=== PATIENT | female | born 1985 | race Caucasian/White ===

== ENCOUNTER 2023-03-07 12:55 | Outpatient (AMB) | payer OTHER, SELFPAY ==
--- NOTE | 2023-03-07 13:02 | MHC.PC.OV ---
Vital Signs 03/07/23 13:04 Height 5 ft 9 in Weight 130 lb BMI 19.2 BP 124/70 Blood Pressure Location Lt brachial Position Sitting Pulse 79 Pulse Source Pulse Oximeter Pulse Oximetry (%) 100 Oxygen Delivery Method Room Air Intake Visit Reasons: Re-Establish Care / PE Intake Note: Pt is here today for her PE Is last menstrual period known: Yes Last menstrual period: 02/21/23 Allergies No Known Allergies Allergy (Verified 03/07/23 13:14) Medication List - Last Reconciled 04/01/23 by Ariane Mccann MD escitalopram oxalate 10 mg PO DAILY Tobacco use date assessed: 03/07/23 Dental Screening Dental Screen Date: 03/07/23 Did you have a dental visit in the last 12 months?: Yes Did you have a dental problem in the last 6 months where you did not have access to dental care?: No Was dental information given to patient?: Patient has dentist HPI Re-Establish Care / PE HPI Details 37 year old Lady here today to establish care and for her physical exam . She currently sees [facility], Dr. Lau, who did a Pap in 2018December 26 which showed presence of atypical squamous cells of undetermined significance, negative HPV. Has mixed anxiety and depression, previously on Wellbutrin but had to discontinue it as it was making her very angry , and is currently doing well on escitalopram. [facility] Medical History (Updated 03/07/23 @ 13:33 by Ariane Mccann MD) Mixed anxiety and depressive disorder Surgical History (Updated 04/01/23 @ 11:15 by Ariane Mccann MD) No pertinent past surgical history Family History (Updated 04/01/23 @ 11:17 by Ariane Mccann MD) Father Esophageal cancer COPD (chronic obstructive pulmonary disease) Diabetes mellitus CVA (cerebral vascular accident) Social History Housing: House e-Cigarette/Vaping Use: Never Used service: No Current occupational status: unemployed Cognitive needs: No Hearing needs: No Vision needs: Yes Female Reproductive History Menstrual Date of last menstrual period: 02/21/23 Questionnaire PHQ-9 Over the last 2 weeks, how often have you been bothered by any of the following problems? 1. Little interest or pleasure in doing things: several days 2. Feeling down, depressed, or hopeless: several days 3. Trouble falling or staying asleep, or sleeping too much: several days 4. Feeling tired or having little energy: nearly every day 5. Poor appetite or overeating: more than half the days 6. Feeling bad about yourself - or that you are a failure or have let yourself or your family down: not at all 7. Trouble concentrating on things, such as reading the newspaper or watching television: not at all 8. Moving or speaking so slowly that other people could have noticed. Or the opposite - being so fidgety or restless that you have been moving around a lot more than usual: not at all 9. Thoughts that you would be better off or of hurting yourself in some way: not at all Total score: 8 Depression Screening Interpretation: Positive Depression Screening Follow-up: Existing condition, In treatment and Community Mental Health Worker F/U Depression Screening Done: Yes 27963 - PHQ-9 Billing: Yes Source: Developed by Drs. Amol Sandhu, Jennifer Uriarte, Alessandro Avendaño and colleagues, with an educational giuseppe from [employer]. Thrive Questionnaire Date Thrive assessed: 03/07/23 What is your living situation today?: I have a steady place to live Within the past 12 months, did the food you bought not last and you didn't have the money to get more?: Never true Within the past 12 months, did you worry whether your food would run out before you got money to buy more?: Never true Do you have trouble paying for medicines?: No Do you have trouble getting transportation to medical appointments?: No Do you have trouble paying your heating and electricity bill?: No Do you have trouble taking care of your child, family member or friend?: No Do you have trouble with day-to-day activities such as bathing, preparing meals, shopping, managing finances, etc.?: No Are you currently unemployed and looking for a job?: No Are you interested in more education?: No AUDIT C Alcohol Use Questionnaire (AUDIT-C) 1. How often do you have a drink containing alcohol?: Never Total Score: 0 CL-7 AMB Questionnaire CL-7 Date CL - 7 assessed: 03/07/23 Feeling nervous, anxious, or on edge: 3 = Nearly every day Not being able to stop or control worryin = More than half the days Worrying too much about different things: 2 = More than half the days Trouble relaxin = Several days Being so restless that it is hard to sit still: 0 = Not at all Becoming easily annoyed or irritable: 3 = Nearly every day Feeling afraid as if something awful might happen: 0 = Not at all Total CL-7 score (0-4 normal; 5-9 mild; 10-14 moderate; 15-21 severe): 11 Source: Developed by Drs. Amol Sandhu, Jennifer Uriarte, Alessandro Avendaño and colleagues, with an educational giuseppe from [employer]. CL-7 Assessment Billing CL-7 Assessment Tool: CL-7 Assessment 77998 Review of Systems Const Denies body aches, Denies fatigue, Denies fever(s), Denies headache(s) and Denies weakness Eyes Denies change in vision, Denies eye discharge and Denies itchy eyes ENT Denies dizziness, Denies headache(s), Denies nasal congestion, Denies nasal discharge and Denies sore throat Card Denies chest pain, Denies lightheadedness, Denies palpitations and Denies dyspnea Resp Denies chest congestion, Denies cough, Denies dyspnea and Denies wheezing GI Denies abdominal pain, Denies change in bowel habits and Denies heartburn Denies hematuria, Denies urinary frequency, Denies dysuria and Denies urinary urgency Musc Reports no additional complaints Skin/Breast Denies breast pain, Denies breast mass, Denies lesions and Denies rash Neuro Denies dizziness, Denies headache(s) and Denies weakness Psych Reports no additional complaints and Reports as per HPI Endo Denies fatigue, Denies polydipsia, Denies polyuria and Denies palpitations Benson/Lymph Denies easy bruising Aller/Immun Denies itchy eyes, Denies seasonal rhinorrhea and Denies wheezing Physical exam (Primary Care) Vital Signs: Last Vital Signs Pulse 79 03/07/23 13:04 BP 124/70 03/07/23 13:04 Pulse Ox 100 03/07/23 13:04 Oxygen Delivery Method Room Air 03/07/23 13:04 BMI result Body Mass Index 19.2 Tobacco/Smoking Status: Tobacco use Status Tobacco use date assessed 03/07/23 03/07/23 13:23 e-Cigarette/Vaping Use Never Used 03/07/23 13:23 PHQ-9: PHQ-9 Score PHQ-9: Total score 8 03/07/23 13:58 Depression Screening Interpretation: Positive Depression Screening Follow-up: Existing condition, In treatment and Community Mental Health Worker F/U Thrive Assessment: Date of Thrive Assessment Date Thrive assessed 03/07/23 03/07/23 13:27 Const General: no acute distress and alert Nutritional Appearance: average body habitus Orientation/consciousness: patient oriented x3 HENMT Head: Yes normocephalic and Yes atraumatic Ears: external ears normal, TM's normal bilaterally and EAC's normal General nose exam: Normal external nose present and No nasal discharge present Face and sinus: Yes face symmetric Mouth: Normal oral and palatal mucosa present, lip normal, tongue normal, oropharynx normal and moist mucous membranes Eyes General: appearance normal, both eyes and all related structures Eyelids: Yes eyelids normal Conjunctivae: conjunctivae normal Sclerae: sclerae normal Pupils: Equal, round and reactive pupils present EOM: EOMs intact bilaterally Neck Neck: Yes full ROM, Yes no lymphadenopathy and Yes supple Thyroid: Thyroid normal Chest Breast/axilla palpation: normal palpation of the breasts Resp Effort & Inspection: normal respiratory effort and able to speak in complete sentences Auscultation: clear to auscultation bilaterally Cardio Rate: regular rate Rhythm: regular rhythm Heart sounds: S1 normal heart sound present and S2 normal heart sound present GI Palpation (GI): Soft to palpation, nontender, no guarding and no masses Auscultation: normal bowel sounds General: Yes no CVA tenderness Back/Spine/Pelvis Back: no CVA tenderness and No back tenderness Skin General skin exam: no rashes or lesions noted Neuro General: patient oriented x3, gait normal, moves all extremities, Normal light touch and pain sensation, no focal motor deficits and CN's II-XI intact bilaterally Cranial nerves: Yes Equal, round and reactive pupils present Cognition (Neuro): normal cognition Gait exam (Neuro): Normal gait present Motor exam (neuro): 5/5 motor strength present throughout Extrem General: Yes normal to inspection, Yes full ROM, Yes no joint enlargement, Yes no pedal edema and Yes normal gait Psych Appearance: grossly normal and well kempt Mental Status: mental status grossly normal Speech and movement: Normal speech and movement present Affect: normal affect Attitude: cooperative Thought process: Normal thought process present Thought content: Normal thought content present Office Procedures Flu Questionnaire Does the patient have a severe egg allergy?: No Does the patient have severe life threatening allergies?: No Does the patient have a fever or illness today?: No Has the patient ever had Guillain-[place] Syndrome?: No Has the patient ever had any past reaction to a flu shot?: No Immunizations flu vacc [id number] 6mos up(PF) 60 mcg(15 mcgx4)/0.5 mL IM syringe Performing Provider: Ariane Mccann MD Performing Location: [facility] Administered by: Mana Cherry CMA on 03/07/23 13:29 Dose Route Admin Location Dispensed Lot Number Expiration Date NDC [employer] 0.5 mL IM Left Deltoid 0.5 mL [id number] 09/10/23 63610-381-29 SmartPill VIS Given Date VIS Provided VIS Publication Date 03/07/23 Single Vaccine 20 Eligibility Eligibility Date Funding Source Not [facility] Eligible 03/07/23 Private Assessment and Plan Assessment & Plan (1) Annual visit for general adult medical examination with abnormal findings: Code(s): Z00.01 - Encounter for general adult medical examination with abnormal findings Plan: Will check appropriate labs. Continue regular dental visit every 6 months and regular eye exams, at least every 2 years. Take adequate calcium in diet and vitamin-D 3 at 2000 IU per cap once a day, in addition to weight-bearing exercises to help maintain good muscle tone and weight control. Instructed to do self-breast exam, and recommended to get yearly mammogram, starting at age 40. I flu vaccine given today, patient has had COVID vaccines the past but does not want to get the booster dose, up-to-date with her Tdap. Currently sees [facility] for her routine Pap and pelvic exam, last done in 2021 with normal findings, per patient (2) Mixed anxiety and depressive disorder: Code(s): F41.8 - Other specified anxiety disorders Plan: Currently on escitalopram 10 mg daily, started a by her OBGYN 02/10/2023, patient does not want to adjust dose as of yet, sees her therapist regularly Orders: Orders Influenza [id number] Immunization 03/07/23 Z23 - Encounter for immunization Complete Blood Count Auto Diff 03/08/23 F41.8 - Other specified anxiety disorders, Z00.01 - Encounter for general adult medical examination with abnormal findings Alanine Aminotransferase 03/08/23 F41.8 - Other specified anxiety disorders, Z00.01 - Encounter for general adult medical examination with abnormal findings Aspartate Amino Transferase 03/08/23 F41.8 - Other specified anxiety disorders, Z00.01 - Encounter for general adult medical examination with abnormal findings TSH reflex Free T4 03/08/23 F41.8 - Other specified anxiety disorders, Z00.01 - Encounter for general adult medical examination with abnormal findings Vitamin D 25-OH Total 03/08/23 F41.8 - Other specified anxiety disorders, Z00.01 - Encounter for general adult medical examination with abnormal findings Vitamin B12 and Folate 03/08/23 F41.8 - Other specified anxiety disorders, Z00.01 - Encounter for general adult medical examination with abnormal findings Basic Metabolic Panel Fasting 03/08/23 F41.8 - Other specified anxiety disorders, Z00.01 - Encounter for general adult medical examination with abnormal findings Lipid Panel 03/08/23 F41.8 - Other specified anxiety disorders, Z00.01 - Encounter for general adult medical examination with abnormal findings Coding Level of Care Code New Pt Prev Care 18-39yr(31176 Diagnoses Annual visit for general adult medical examination with abnormal findings Z00.01 Mixed anxiety and depressive disorder F41.8 Additional Codes CL-7 Assessment Billing - CL-7 Assessment Tool: CL-7 Assessment 90559 ([id number])
[2023-03-07 13:04] VITALS: BP 124/70; PULSE 79; O2SAT 100; BMI 19.2
== END 2023-03-07 15:55 | disposition home or self-care (01) ==
PROVIDERS: PCP Internal Medicine; Visit Provider Internal Medicine
DX: Z23 Encounter for immunization (principal)
CPT/HCPCS: 90471; 90686; 96127; 99385

== ENCOUNTER 2023-03-08 07:28 | Outpatient (REF) | payer OTHER, SELFPAY ==
[2023-03-08 11:21] LABS: MANUAL DIFF FLAG NO
[2023-03-08 11:47] LABS: Basophils Percent Auto 0.4 % (0-2); Eosinophils Absolute Auto 0.1 X10*3/uL (0.0-0.4); Hematocrit 41.8 % (37.0-47.0); Hemoglobin 13.9 g/dl (12.0-16.0); Imm Gran Abs Auto 0.02 X10*3/uL (0.00-0.03); Imm Gran Pct Auto 0.4 % (0.0-0.4); Lymphocytes Absolute Auto 1.2 X10*3/uL (1.2-4.9); Lymphocytes Percent Auto 23.8 % (20-40); Mean Corpuscular HGB Conc 33.3 g/dl (31.0-35.0); Mean Corpuscular Hemoglobin 29.4 pg (27.0-33.0); Mean Corpuscular Volume 88.6 fL (80.0-98.0); Mean Platelet Volume 9.4 fL (9.4-12.3); Monocytes Absolute Auto 0.4 X10*3/uL (0.1-1.2); Monocytes Percent Auto 7.9 % (2-11); Neutrophils Absolute Auto 3.4 x10*3/uL (2.0-8.3); Neutrophils Percent Auto 66.5 % (45-73); Platelet Count 254 X10*3/uL (160-400); Red Blood Count 4.72 X10*6/uL (4.20-5.50); Red Cell Distribution Width 12.5 % (11.0-16.0); White Blood Count 5.1 X10*3/uL (4.8-10.8)
[2023-03-08 12:12] LABS: Alanine Aminotransferase 11 U/L (0-31); Anion Gap 13 (12-20); Aspartate Amino Transferase 16 U/L (5-31); Blood Urea Nitrogen 8 mg/dL (9-16); Calcium 9.2 mg/dL (8.4-10.2); Carbon Dioxide 28 mmol/L (22-29); Chloride 102 mmol/L (96-108); Cholesterol 161 mg/dL (<200); Estimated Glomerular Filt Rate > 60; Glucose Fasting 87 mg/dL (60-99); HDL Cholesterol 63 mg/dL (>40); LDL Cholesterol Calculated 77 mg/dL (<100); Potassium 3.9 mmol/L (3.3-5.1); Sodium 139 mmol/L (135-145); Triglycerides 107 mg/dL (<150)
[2023-03-08 12:30] LABS: TSH reflex Free T4 1.02 uIU/mL (0.32-4.0); Vitamin D 25-OH Total 35.4 ng/mL (>30)
[2023-03-08 13:04] LABS: Folate 12.4 ng/mL (> or = 4.0)
[2023-03-08 14:31] LABS: Vitamin B12 738 pg/mL (200-900)
== END 2023-03-08 07:29 | disposition home or self-care (01) ==
LOC: HO.HMGCLDS 07:28
PROVIDERS: PCP Internal Medicine; Visit Provider Internal Medicine
DX: Z00.01 Encounter for general adult medical examination with abnormal findings (principal); F41.8 Other specified anxiety disorders; Z20.2 Contact with and (suspected) exposure to infections with a predominantly sexual mode of transmission
CPT/HCPCS: 36415; 80048; 80061; 82306; 82607; 82746; 84443; 84450; 84460; 85025

== ENCOUNTER 2023-08-18 09:34 | Outpatient (AMB) | payer OTHER, SELFPAY ==
--- NOTE | 2023-08-18 09:32 | MHC.PC.OV ---
Intake Visit Reasons: andriod [phone] discuss increase med Intake Note: Pt is having a telehealth visit to discuss increase of her escitalopram Allergies No Known Allergies Allergy (Verified 08/18/23 09:37) Medication List - Last Reconciled 08/18/23 by Ariane Mccann MD escitalopram oxalate 10 mg PO DAILY Tobacco use date assessed: 08/18/23 Dental Screening Dental Screen Date: 08/18/23 Did you have a dental visit in the last 12 months?: Yes Did you have a dental problem in the last 6 months where you did not have access to dental care?: No Was dental information given to patient?: Patient has dentist HPI andriod [phone] discuss increase med HPI Details 38-year-old lady with mixed anxiety and depression, here today for follow-up by telehealth. Patient was started on escitalopram 10 mg once a day, which she states was initially helping. However there are still days where in she has to pull herself out of bed and force herself to do her usual regular day-to-day activities. Would like to see if she can go higher on her escitalopram dose. Has been tolerating medication well . [facility] Medical History Mixed anxiety and depressive disorder Surgical History No pertinent past surgical history Family History Father Esophageal cancer COPD (chronic obstructive pulmonary disease) Diabetes mellitus CVA (cerebral vascular accident) Social History Housing: House Patient Tobacco Use Status: Never used Tobacco e-Cigarette/Vaping Use: Never Used service: No Current occupational status: unemployed Cognitive needs: No Hearing needs: No Vision needs: Yes Questionnaire PHQ-9 Over the last 2 weeks, how often have you been bothered by any of the following problems? 1. Little interest or pleasure in doing things: not at all 2. Feeling down, depressed, or hopeless: several days 3. Trouble falling or staying asleep, or sleeping too much: not at all 4. Feeling tired or having little energy: several days 5. Poor appetite or overeating: more than half the days 6. Feeling bad about yourself - or that you are a failure or have let yourself or your family down: not at all 7. Trouble concentrating on things, such as reading the newspaper or watching television: not at all 8. Moving or speaking so slowly that other people could have noticed. Or the opposite - being so fidgety or restless that you have been moving around a lot more than usual: not at all 9. Thoughts that you would be better off or of hurting yourself in some way: not at all Total score: 4 Depression Screening Interpretation: Positive Depression Screening Follow-up: Existing condition, In treatment and Change in Medication (Escitalopram dose increased to 20 mg daily) Depression Screening Done: Yes 06270 - PHQ-9 Billing: Yes Source: Developed by Drs. Amol Sandhu, Jennifer Uriarte, Alessandro Avendaño and colleagues, with an educational giuseppe from [employer]. Thrive Questionnaire Date Thrive assessed: 08/18/23 I am a: Patient What is your living situation today?: I have a steady place to live Within the past 12 months, did the food you bought not last and you didn't have the money to get more?: Never true Within the past 12 months, did you worry whether your food would run out before you got money to buy more?: Never true Do you have trouble paying for medicines?: No Do you have trouble getting transportation to medical appointments?: No Do you have trouble paying your heating and electricity bill?: No Do you have trouble taking care of your child, family member or friend?: No Do you have trouble with day-to-day activities such as bathing, preparing meals, shopping, managing finances, etc.?: No Are you currently unemployed and looking for a job?: No Are you interested in more education?: No THRIVE Score: 0 AUDIT C Alcohol Use Questionnaire (AUDIT-C) 1. How often do you have a drink containing alcohol?: Never Total Score: 0 CL-7 AMB Questionnaire CL-7 Date CL - 7 assessed: 08/18/23 Feeling nervous, anxious, or on edge: 1 = Several days Not being able to stop or control worryin = Several days Worrying too much about different things: 1 = Several days Trouble relaxin = Not at all Being so restless that it is hard to sit still: 1 = Several days Becoming easily annoyed or irritable: 0 = Not at all Feeling afraid as if something awful might happen: 0 = Not at all Total CL-7 score (0-4 normal; 5-9 mild; 10-14 moderate; 15-21 severe): 4 Source: Developed by Drs. Amol Sandhu, Jennifer Uriarte, Alessandro Avendaño and colleagues, with an educational giuseppe from [employer]. CL-7 Assessment Billing CL-7 Assessment Tool: CL-7 Assessment 05945 Review of Systems Const Denies body aches, Denies fatigue, Denies fever(s), Denies headache(s) and Denies weakness Eyes Denies change in vision ENT Denies dizziness, Denies headache(s) and Denies nasal congestion Card Denies chest pain, Denies lightheadedness, Denies palpitations and Denies dyspnea Resp Denies chest congestion, Denies cough, Denies dyspnea and Denies wheezing GI Denies abdominal pain, Denies change in bowel habits and Denies heartburn Denies hematuria, Denies urinary frequency, Denies dysuria and Denies urinary urgency Musc Reports no additional complaints Neuro Denies dizziness, Denies headache(s) and Denies weakness Psych Reports no additional complaints and Reports as per HPI Endo Denies fatigue, Denies polydipsia, Denies polyuria and Denies palpitations Benson/Lymph Denies easy bruising Aller/Immun Denies seasonal rhinorrhea and Denies wheezing Physical exam (Primary Care) Tobacco/Smoking Status: Tobacco use Status Tobacco use date assessed 08/18/23 08/18/23 09:33 Patient Tobacco Use Status Never used Tobacco 08/18/23 09:33 e-Cigarette/Vaping Use Never Used 08/18/23 09:33 PHQ-9: PHQ-9 Score PHQ-9: Total score 4 08/18/23 09:41 Depression Screening Interpretation: Positive Depression Screening Follow-up: Existing condition, In treatment and Change in Medication (Escitalopram dose increased to 20 mg daily) Thrive Assessment: Date of Thrive Assessment Date Thrive assessed 08/18/23 08/18/23 09:34 Telehealth Telehealth Telehealth Platform: [employer] Location of provider rendering services: practice address Location of patient: address on file Patient Identification confirmed using: Name, : Yes Telehealth method: video Patient verbally consented to treatment: Yes Patient verbally consented to billing insurance company: Yes Patient informed of any privacy concerns related to visit: Yes Minutes spent on Phone/Video with Pt.: 15 Assessment and Plan Assessment & Plan (1) Mixed anxiety and depressive disorder: Code(s): F41.8 - Other specified anxiety disorders Plan: Increased dose of escitalopram to 20 mg per tablet taken once a day in the morning. Sees a therapist every 2 weeks. Will have her see me back for follow-up next month via telehealth . Medications: New escitalopram oxalate 20 mg PO DAILY 30 tabs 2RF F41.8 - Other specified anxiety disorders Coding Level of Care Code Tele Est Pt Level 3 (56618) Diagnoses Mixed anxiety and depressive disorder F41.8 Additional Codes CL-7 Assessment Billing - CL-7 Assessment Tool: CL-7 Assessment 32140 ([id number])
== END 2023-08-18 12:15 | disposition home or self-care (01) ==
LOC: HO.HMGC 09:34
PROVIDERS: PCP Internal Medicine; Visit Provider Internal Medicine
DX: F41.8 Other specified anxiety disorders (principal)
CPT/HCPCS: 99213

== ENCOUNTER → 2023-10-06 07:27 | Outpatient (AMB) | payer OTHER, SELFPAY ==
--- NOTE | 2023-10-06 08:20 | MHC.PC.OV ---
Intake Visit Reasons: 1 month follow up anxiety Allergies No Known Allergies Allergy (Verified 10/06/23 09:12) Medication List - Last Reconciled 10/06/23 by Ariane Mccann MD escitalopram oxalate 20 mg PO DAILY Tobacco use date assessed: 08/18/23 Dental Screening Dental Screen Date: 08/18/23 HPI 1 month follow up anxiety HPI Details 38-year-old lady here today for follow-up on her anxiety and depression. Currently taking escitalopram 20 mg once a day in a.m. and has been feeling much better on this higher dose. Has been able to keep her focus at work, no panic attacks, mood swings have improved. She sleeps well at night. Would like to continue on same dose of medication. [facility] Medical History Mixed anxiety and depressive disorder Surgical History No pertinent past surgical history Family History Father Esophageal cancer COPD (chronic obstructive pulmonary disease) Diabetes mellitus CVA (cerebral vascular accident) Social History Housing: House Patient Tobacco Use Status: Never used Tobacco e-Cigarette/Vaping Use: Never Used service: No Current occupational status: unemployed Cognitive needs: No Hearing needs: No Vision needs: Yes Questionnaire PHQ-9 Over the last 2 weeks, how often have you been bothered by any of the following problems? 1. Little interest or pleasure in doing things: not at all 2. Feeling down, depressed, or hopeless: not at all 3. Trouble falling or staying asleep, or sleeping too much: not at all 4. Feeling tired or having little energy: not at all 5. Poor appetite or overeating: not at all 6. Feeling bad about yourself - or that you are a failure or have let yourself or your family down: not at all 7. Trouble concentrating on things, such as reading the newspaper or watching television: not at all 8. Moving or speaking so slowly that other people could have noticed. Or the opposite - being so fidgety or restless that you have been moving around a lot more than usual: not at all 9. Thoughts that you would be better off or of hurting yourself in some way: not at all Total score: 0 Depression Screening Interpretation: Positive (Better on escitalopram 20 mg daily) Depression Screening Follow-up: Existing condition and In treatment Depression Screening Done: Yes 87742 - PHQ-9 Billing: Yes Source: Developed by Drs. Amol Sandhu, Alessandro Parker and colleagues, with an educational giuseppe from [employer]. Thrive Questionnaire Date Thrive assessed: 08/18/23 CL-7 AMB Questionnaire CL-7 Date CL - 7 assessed: 10/06/23 Feeling nervous, anxious, or on edge: 0 = Not at all Not being able to stop or control worryin = Not at all Worrying too much about different things: 0 = Not at all Trouble relaxin = Not at all Being so restless that it is hard to sit still: 0 = Not at all Becoming easily annoyed or irritable: 0 = Not at all Feeling afraid as if something awful might happen: 0 = Not at all Total CL-7 score (0-4 normal; 5-9 mild; 10-14 moderate; 15-21 severe): 0 Source: Developed by Drs. Amol Sandhu, Jennifer Uriarte, Alessandro Avendaño and colleagues, with an educational giuseppe from [employer]. CL-7 Assessment Billing CL-7 Assessment Tool: CL-7 Assessment 01258 Review of Systems Const Denies body aches, Denies fatigue, Denies fever(s), Denies headache(s) and Denies weakness Eyes Denies change in vision ENT Denies dizziness, Denies headache(s) and Denies nasal congestion Card Denies chest pain, Denies lightheadedness, Denies palpitations and Denies dyspnea Resp Denies chest congestion, Denies cough, Denies dyspnea and Denies wheezing GI Denies abdominal pain, Denies change in bowel habits and Denies heartburn Denies hematuria, Denies urinary frequency, Denies dysuria and Denies urinary urgency Musc Reports no additional complaints Neuro Denies dizziness, Denies headache(s) and Denies weakness Psych Reports no additional complaints Endo Denies fatigue, Denies polydipsia, Denies polyuria and Denies palpitations Aller/Immun Denies seasonal rhinorrhea and Denies wheezing Physical exam (Primary Care) Tobacco/Smoking Status: Tobacco use Status Tobacco use date assessed 08/18/23 10/06/23 08:20 Patient Tobacco Use Status Never used Tobacco 10/06/23 08:20 e-Cigarette/Vaping Use Never Used 10/06/23 08:20 Depression Screening Interpretation: Positive (Better on escitalopram 20 mg daily) Depression Screening Follow-up: Existing condition and In treatment Thrive Assessment: Date of Thrive Assessment Date Thrive assessed 08/18/23 10/06/23 08:20 Telehealth Telehealth Telehealth Platform: [employer] Location of provider rendering services: practice address Location of patient: address on file Patient Identification confirmed using: Name, : Yes Telehealth method: video Patient verbally consented to treatment: Yes Patient verbally consented to billing insurance company: Yes Patient informed of any privacy concerns related to visit: Yes Minutes spent on Phone/Video with Pt.: 15 Assessment and Plan Assessment & Plan (1) Mixed anxiety and depressive disorder: Code(s): F41.8 - Other specified anxiety disorders Plan: Anxiety and depression improving on escitalopram 20 mg once a day, will continue on present treatment. Advised to continue with behavioral techniques to manage anxiety, will see her back for follow-up in March for her next physical or sooner as needed. Medications: Refilled escitalopram oxalate 20 mg PO DAILY 30 tabs 5RF F41.8 - Other specified anxiety disorders Coding Level of Care Code Tele Est Pt Level 3 (42433) Diagnoses Mixed anxiety and depressive disorder F41.8 Additional Codes CL-7 Assessment Billing - CL-7 Assessment Tool: CL-7 Assessment 92551 ([id number])
== END ==
LOC: HO.HMGC 07:27
PROVIDERS: PCP Internal Medicine; Visit Provider Internal Medicine
DX: F41.8 Other specified anxiety disorders (principal)
CPT/HCPCS: 99213

== ENCOUNTER 2024-03-08 08:05 | Outpatient (AMB) | payer OTHER, SELFPAY ==
--- NOTE | 2024-03-08 08:10 | MHC.PC.OV ---
Vital Signs 03/08/24 08:14 Height 5 ft 9 in Weight 139 lb BMI 20.5 BP 112/64 Blood Pressure Location Rt brachial Position Sitting Pulse 89 Pulse Source Pulse Oximeter Pulse Oximetry (%) 100 Oxygen Delivery Method Room Air Intake Visit Reasons: PE Intake Note: Pt is here today for her PE: Last papsmear 12/17/21 Is last menstrual period known: Yes Last menstrual period: 03/04/24 Allergies No Known Allergies Allergy (Verified 03/08/24 08:48) Medication List - Last Reconciled 03/08/24 by Ariane Mccann MD escitalopram oxalate 20 mg PO DAILY Tobacco use date assessed: 03/08/24 Dental Screening Dental Screen Date: 03/08/24 Did you have a dental visit in the last 12 months?: Yes Did you have a dental problem in the last 6 months where you did not have access to dental care?: No Was dental information given to patient?: Patient has dentist HPI PE HPI Details - The patient is a 38-year-old female presenting for a physical exam. - She has history of depression and anxiety disorder currently on esitalopram 10 mg once a day. Her anxiety attacks are primarily triggered by concerns for children's safety; symptoms have improved over time. - Discussed nine pounds of weight gain over one year, attributes lack of weight management to decreased physical activity. 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 [facility] Medical History Mixed anxiety and depressive disorder Surgical History No pertinent past surgical history Family History Father Esophageal cancer COPD (chronic obstructive pulmonary disease) Diabetes mellitus CVA (cerebral vascular accident) Social History Housing: House Patient Tobacco Use Status: Never used Tobacco e-Cigarette/Vaping Use: Never Used service: No Current occupational status: unemployed Cognitive needs: No Hearing needs: No Vision needs: Yes Female Reproductive History Menstrual Duration of menses: 3-5 days Date of last menstrual period: 03/04/24 control method: none Other: goes to [facility] for her routine pap and pelvic exam Questionnaire PHQ-9 Over the last 2 weeks, how often have you been bothered by any of the following problems? 1. Little interest or pleasure in doing things: not at all 2. Feeling down, depressed, or hopeless: not at all 3. Trouble falling or staying asleep, or sleeping too much: not at all 4. Feeling tired or having little energy: nearly every day 5. Poor appetite or overeating: nearly every day 6. Feeling bad about yourself - or that you are a failure or have let yourself or your family down: not at all 7. Trouble concentrating on things, such as reading the newspaper or watching television: not at all 8. Moving or speaking so slowly that other people could have noticed. Or the opposite - being so fidgety or restless that you have been moving around a lot more than usual: not at all 9. Thoughts that you would be better off or of hurting yourself in some way: not at all Total score: 6 Depression Screening Interpretation: Positive (controlled with escitalopram ) Depression Screening Follow-up: Existing condition, In treatment and Follow-up Visit Requested Depression Screening Done: Yes Source: Developed by Drs. Amol Sandhu, Jennifer Uriarte, Alessandro Avendaño and colleagues, with an educational giuseppe from [employer]. Thrive Questionnaire Date Thrive assessed: 08/18/23 I am a: Patient What is your living situation today?: I have a steady place to live Within the past 12 months, did the food you bought not last and you didn't have the money to get more?: Never true Within the past 12 months, did you worry whether your food would run out before you got money to buy more?: Never true Do you have trouble paying for medicines?: No Do you have trouble getting transportation to medical appointments?: No Do you have trouble paying your heating and electricity bill?: No Do you have trouble taking care of your child, family member or friend?: No Do you have trouble with day-to-day activities such as bathing, preparing meals, shopping, managing finances, etc.?: No Are you currently unemployed and looking for a job?: No Are you interested in more education?: No Please select the resources that you would like help with: None Currently or been in a relationship where the following occur: I choose not to answer THRIVE Score: 0 AUDIT C Alcohol Use Questionnaire (AUDIT-C) 1. How often do you have a drink containing alcohol?: Never Total Score: 0 CL-7 AMB Questionnaire CL-7 Date CL - 7 assessed: 10/06/23 Feeling nervous, anxious, or on edge: 1 = Several days Not being able to stop or control worryin = Not at all Worrying too much about different things: 0 = Not at all Trouble relaxin = Not at all Being so restless that it is hard to sit still: 0 = Not at all Becoming easily annoyed or irritable: 3 = Nearly every day Feeling afraid as if something awful might happen: 0 = Not at all Total CL-7 score (0-4 normal; 5-9 mild; 10-14 moderate; 15-21 severe): 4 Source: Developed by Drs. Amol Sandhu, Jennifer Uriarte, Alessandro Avendaño and colleagues, with an educational giuseppe from [employer]. CL-7 Assessment Billing CL-7 Assessment Tool: CL-7 Assessment 67166 Review of Systems Const Denies body aches, Denies fatigue, Denies fever(s), Denies headache(s) and Denies weakness Eyes Details: UTD with eye exam Denies change in vision ENT Denies dizziness, Denies headache(s) and Denies nasal congestion Card Denies chest pain, Denies lightheadedness, Denies palpitations and Denies dyspnea Resp Denies chest congestion, Denies cough, Denies dyspnea and Denies wheezing GI Denies abdominal pain, Denies change in bowel habits and Denies heartburn Denies hematuria, Denies urinary frequency, Denies dysuria and Denies urinary urgency Musc Reports no additional complaints Skin/Breast Denies breast pain, Denies breast mass and Denies rash Neuro Denies dizziness, Denies headache(s) and Denies weakness Psych Reports no additional complaints Endo Denies fatigue, Denies polydipsia, Denies polyuria and Denies palpitations Benson/Lymph Reports no additional complaints Aller/Immun Denies seasonal rhinorrhea and Denies wheezing Physical exam (Primary Care) Vital Signs: Last Vital Signs Pulse 89 03/08/24 08:14 BP 112/64 03/08/24 08:14 Pulse Ox 100 03/08/24 08:14 Oxygen Delivery Method Room Air 03/08/24 08:14 BMI result Body Mass Index 20.5 Tobacco/Smoking Status: Tobacco use Status Tobacco use date assessed 03/08/24 03/08/24 08:19 Patient Tobacco Use Status Never used Tobacco 03/08/24 08:11 e-Cigarette/Vaping Use Never Used 03/08/24 08:11 PHQ-9: PHQ-9 Score PHQ-9: Total score 6 03/08/24 08:11 Depression Screening Interpretation: Positive (controlled with escitalopram ) Depression Screening Follow-up: Existing condition, In treatment and Follow-up Visit Requested Thrive Assessment: Date of Thrive Assessment Date Thrive assessed 08/18/23 03/08/24 08:11 Currently or been in a relationship where the following occur: I choose not to answer Advance Care Planning discussion: Completed/Scanned Date of discussion: 03/08/24 Who was present: patient Forms completed: Health Care Proxy Time spent: 16-45 minutes Actual minutes spent: 2 Const General: no acute distress and alert Nutritional Appearance: average body habitus Orientation/consciousness: patient oriented x3 HENMT Ears: external ears normal, TM's normal bilaterally and EAC's normal General nose exam: Normal external nose present Face and sinus: Yes face symmetric Mouth: Normal oral and palatal mucosa present, lip normal, tongue normal, oropharynx normal and moist mucous membranes Eyes General: appearance normal, both eyes and all related structures Eyelids: Yes eyelids normal Conjunctivae: conjunctivae normal Sclerae: sclerae normal Pupils: Equal, round and reactive pupils present EOM: EOMs intact bilaterally Neck Neck: Yes full ROM, Yes no lymphadenopathy and Yes supple Thyroid: Thyroid normal Chest Breast/axilla palpation: normal palpation of the breasts Resp Effort & Inspection: normal respiratory effort and able to speak in complete sentences Auscultation: clear to auscultation bilaterally Cardio Rate: regular rate Rhythm: regular rhythm Heart sounds: S1 normal heart sound present and S2 normal heart sound present GI Palpation (GI): Soft to palpation, nontender, no guarding and no masses Auscultation: normal bowel sounds General: Yes no CVA tenderness Back/Spine/Pelvis Back: no CVA tenderness and No back tenderness Skin General skin exam: no rashes or lesions noted Neuro General: patient oriented x3, gait normal, moves all extremities, Normal light touch and pain sensation, no focal motor deficits and CN's II-XI intact bilaterally Cranial nerves: Yes Equal, round and reactive pupils present Cognition (Neuro): normal cognition Gait exam (Neuro): Normal gait present Motor exam (neuro): 5/5 motor strength present throughout Extrem General: Yes normal to inspection, Yes full ROM, Yes no joint enlargement, Yes no pedal edema and Yes normal gait Psych Appearance: grossly normal and well kempt Mental Status: mental status grossly normal Speech and movement: Normal speech and movement present Affect: normal affect Attitude: cooperative Thought process: Normal thought process present Thought content: Normal thought content present Coding Level of Care Code Est Pt Prev Care 18-39y(51653) Diagnoses Annual visit for general adult medical examination with abnormal findings Z00. Mixed anxiety and depressive disorder F41.8 Encounter for counseling regarding advance directives Z71.89 Additional Codes CL-7 Assessment Billing - CL-7 Assessment Tool: CL-7 Assessment 88417 ([id number]) Vital Signs *Quality* - Advance Care Planning discussion: Completed/Scanned ([id number]) Vital Signs *Quality* - Time spent: 16-45 minutes ([id number]) Assessment & Plan Assessment & Plan (1) Annual visit for general adult medical examination with abnormal findings: Code(s): Z00.01 - Encounter for general adult medical examination with abnormal findings (2) Mixed anxiety and depressive disorder: Code(s): F41.8 - Other specified anxiety disorders Category: Medical (3) Encounter for counseling regarding advance directives: Code(s): Z71.89 - Other specified counseling Plan: Initiated the conversation about Advanced Directives. Advanced Directives help patients prepare for current and future decisions about their medical treatment and place of care. Discussed with patient that it is a process where a patients current condition and prognosis are reviewed, their wishes for information regarding their illness are elicited, and likely medical dilemmas are presented and options discussed. Health care proxy form completed. The form can be amended as needed, reviewed yearly and make changes as needed Plan The management of the patient's health status includes following through on routine laboratory tests, focusing on cholesterol, fasting glucose, and vitamin D levels, to stratify risks and provide appropriate guidance. While the patient reports improvement in anxiety symptoms, continued psychosocial support and attention to lifestyle factors remain crucial. The resolution of depression without pharmacological intervention underscores the importance of monitoring for any future episodes. Family history of diabetes necessitates vigilant metabolic health screening. Weight management will be addressed through lifestyle modifications, primarily through reintroducing exercise and optimizing dietary habits. - Coordinate with [facility] to ensure routine Pap smears are conducted, request copy or results forwarded to us . . Future consideration will be given to COVID booster vaccinations. Patient was informed and verbally consented to the use of an ambient scribe for clinic note documentation during this visit. Orders: Orders Vitamin D 25-OH Total Today F41.8 - Other specified anxiety disorders, Z00.01 - Encounter for general adult medical examination with abnormal findings, Z13.1 - Encounter for screening for diabetes mellitus, Z13.220 - Encounter for screening for lipoid disorders, Z71.89 - Other specified counseling Alanine Aminotransferase Today F41.8 - Other specified anxiety disorders, Z00.01 - Encounter for general adult medical examination with abnormal findings, Z13.1 - Encounter for screening for diabetes mellitus, Z13.220 - Encounter for screening for lipoid disorders, Z71.89 - Other specified counseling Aspartate Amino Transferase Today F41.8 - Other specified anxiety disorders, Z00.01 - Encounter for general adult medical examination with abnormal findings, Z13.1 - Encounter for screening for diabetes mellitus, Z13.220 - Encounter for screening for lipoid disorders, Z71.89 - Other specified counseling Lipid Panel Today F41.8 - Other specified anxiety disorders, Z00.01 - Encounter for general adult medical examination with abnormal findings, Z13.1 - Encounter for screening for diabetes mellitus, Z13.220 - Encounter for screening for lipoid disorders, Z71.89 - Other specified counseling Glucose Fasting Today F41.8 - Other specified anxiety disorders, Z00.01 - Encounter for general adult medical examination with abnormal findings, Z13.1 - Encounter for screening for diabetes mellitus, Z13.220 - Encounter for screening for lipoid disorders, Z71.89 - Other specified counseling Medications: Refilled escitalopram oxalate 20 mg PO DAILY 30 tabs 5RF F41.8 - Other specified anxiety disorders
[2024-03-08 08:14] VITALS: BP 112/64; PULSE 89; O2SAT 100; BMI 20.5
== END 2024-03-08 08:42 | disposition home or self-care (01) ==
PROVIDERS: PCP Internal Medicine; Visit Provider Internal Medicine
DX: Z00.01 Encounter for general adult medical examination with abnormal findings (principal); F41.8 Other specified anxiety disorders; Z71.89 Other specified counseling

== ENCOUNTER 2024-03-08 08:05 | Outpatient (REF) | payer OTHER, SELFPAY ==
[2024-03-08 11:01] LABS: Alanine Aminotransferase 10 U/L (0-31); Aspartate Amino Transferase 19 U/L (5-31); Cholesterol 163 mg/dL (<200); Glucose Fasting 92 mg/dL (60-99); HDL Cholesterol 61 mg/dL (>40); LDL Cholesterol Calculated 82 mg/dL (<100); Triglycerides 101 mg/dL (<150)
[2024-03-08 11:02] LABS: Vitamin D 25-OH Total 25.5 ng/mL (>30)
== END 2024-03-08 08:06 | disposition home or self-care (01) ==
LOC: HO.HMGCLDS 08:05
PROVIDERS: PCP Internal Medicine; Visit Provider Internal Medicine
DX: Z00.01 Encounter for general adult medical examination with abnormal findings (principal); Z13.220 Encounter for screening for lipoid disorders; Z13.1 Encounter for screening for diabetes mellitus; F41.8 Other specified anxiety disorders; Z71.89 Other specified counseling; Z79.899 Other long term (current) drug therapy
CPT/HCPCS: 36415; 80061; 82306; 82947; 84450; 84460; 96127

== ENCOUNTER 2024-07-04 11:40 | Outpatient (AMB) | payer OTHER, SELFPAY ==
--- NOTE | 2024-07-04 11:51 | A.OFFPC_ITS ---
Vital Signs 07/04/24 11:52 Height 5 ft 9 in Weight 138 lb BMI 20.4 BP 112/80 Blood Pressure Location Rt brachial Position Sitting Respiration 16 Pulse 82 Pulse Source Pulse Oximeter Temp 98.2 F Temp Source Oral Pulse Oximetry (%) 100 Oxygen Delivery Method Room Air Intake Visit Reasons: fatique Intake Note: Pt is here today c/o being fatigue Allergies No Known Allergies Allergy (Verified 07/04/24 12:08) Medication List - Last Reconciled 07/04/24 by Ariane Mccann MD cholecalciferol (vitamin D3) 50 mcg PO DAILY escitalopram oxalate 20 mg PO DAILY Tobacco use date assessed: 07/04/24 Dental Screening Dental Screen Date: 07/04/24 Did you have a dental visit in the last 12 months?: Yes Did you have a dental problem in the last 6 months where you did not have access to dental care?: No Was dental information given to patient?: Patient has dentist LATRIC[facility] bill HPI Details 39-year-old lady here today complaining of feeling tired all the time. Patient is currently a [id number] mom, with history of anxiety disorder, has to children both under the age of 2. States that she has been able to sleep well at night. She has help with taking care of the kids, appetite okay but feels tired all the time. Takes escitalopram 20 mg daily for anxiety disorder which she states has been helping and is currently taking vitamin-D 3 supplements 2000 units daily. [facility] Medical History (Updated 07/08/24 @ 04:15 by Ariane Mccann MD) Fatigue Mixed anxiety and depressive disorder Surgical History No pertinent past surgical history Family History Father Esophageal cancer COPD (chronic obstructive pulmonary disease) Diabetes mellitus CVA (cerebral vascular accident) Social History Housing: House Patient Tobacco Use Status: Never used Tobacco e-Cigarette/Vaping Use: Never Used service: No Current occupational status: unemployed Cognitive needs: No Hearing needs: No Vision needs: Yes Questionnaire PHQ-9 Over the last 2 weeks, how often have you been bothered by any of the following problems? 1. Little interest or pleasure in doing things: not at all 2. Feeling down, depressed, or hopeless: not at all 3. Trouble falling or staying asleep, or sleeping too much: several days 4. Feeling tired or having little energy: nearly every day 5. Poor appetite or overeating: nearly every day 6. Feeling bad about yourself - or that you are a failure or have let yourself o r your family down: several days 7. Trouble concentrating on things, such as reading the newspaper or watching television: more than half the days 8. Moving or speaking so slowly that other people could have noticed. Or the opposite - being so fidgety or restless that you have been moving around a lot more than usual: not at all 9. Thoughts that you would be better off or of hurting yourself in some way: not at all Total score: 10 Depression Screening Interpretation: Negative Depression Screening Done: Yes 26615 - PHQ-9 Billing: Yes Source: Developed by Drs. Amol Sandhu, Jennifer Uriarte, Alessandro Avendaño and colleagues, with an educational giuseppe from [employer]. Thrive Questionnaire Date Thrive assessed: 07/01/24 I am a: Patient What is your living situation today?: I have a steady place to live Within the past 12 months, did the food you bought not last and you didn't have the money to get more?: Never true Within the past 12 months, did you worry whether your food would run out before you got money to buy more?: Never true Do you have trouble paying for medicines?: No Do you have trouble getting transportation to medical appointments?: No Do you have trouble paying your heating and electricity bill?: No Do you have trouble taking care of your child, family member or friend?: No Do you have trouble with day-to-day activities such as bathing, preparing meals, shopping, managing finances, etc.?: No Are you currently unemployed and looking for a job?: No Are you interested in more education?: No Please select the resources that you would like help with: None Currently or been in a relationship where the following occur: No concerns reported THRIVE Score: 0 AUDIT C Alcohol Use Questionnaire (AUDIT-C) 1. How often do you have a drink containing alcohol?: Monthly or less 2. How many drinks containing alcohol do you have on a typical day when you are drinking?: 1 or 2 3. How often do you have six or more drinks on one occasion?: Never Total Score: 1 CL-7 AMB Questionnaire CL-7 Date CL - 7 assessed: 10/06/23 Feeling nervous, anxious, or on edge: 1 = Several days Not being able to stop or control worryin = Several days Worrying too much about different things: 1 = Several days Trouble relaxin = Several days Being so restless that it is hard to sit still: 0 = Not at all Becoming easily annoyed or irritable: 2 = More than half the days Feeling afraid as if something awful might happen: 1 = Several days Total CL-7 score (0-4 normal; 5-9 mild; 10-14 moderate; 15-21 severe): 7 Source: Developed by Drs. Amol Sandhu, Jennifer Uriarte, Alessandro Avendaño and colleagues, with an educational giuseppe from [employer]. CL-7 Assessment Billing CL-7 Assessment Tool: CL-7 Assessment 15480 Review of Systems Const Denies body aches, Denies headache(s) and Denies weakness Eyes Details: UTD with eye exam Denies change in vision ENT Denies dizziness, Denies headache(s) and Denies nasal congestion Card Denies chest pain, Denies lightheadedness, Denies palpitations and Denies dyspnea Resp Denies chest congestion, Denies cough, Denies dyspnea and Denies wheezing GI Denies abdominal pain, Denies change in bowel habits and Denies heartburn Denies hematuria, Denies urinary frequency, Denies dysuria and Denies urinary urgency Musc Reports no additional complaints Skin/Breast Denies breast pain, Denies breast mass and Denies rash Neuro Denies dizziness, Denies headache(s) and Denies weakness Psych Reports no additional complaints Endo Denies polydipsia, Denies polyuria and Denies palpitations Benson/Lymph Reports no additional complaints Aller/Immun Denies seasonal rhinorrhea and Denies wheezing Physical exam (Primary Care) Vital Signs: Last Vital Signs Temp 98.2 F 07/04/24 11:52 Pulse 82 07/04/24 11:52 Resp 16 07/04/24 11:52 BP 112/80 07/04/24 11:52 Pulse Ox 100 07/04/24 11:52 Oxygen Delivery Method Room Air 07/04/24 11:52 BMI result Body Mass Index 20.4 Tobacco/Smoking Status: Tobacco use Status Tobacco use date assessed 07/04/24 07/04/24 11:55 Patient Tobacco Use Status Never used Tobacco 07/04/24 11:55 e-Cigarette/Vaping Use Never Used 07/04/24 11:55 PHQ-9: PHQ-9 Score PHQ-9: Total score 10 07/04/24 12:18 Depression Screening Interpretation: Negative Thrive Assessment: Date of Thrive Assessment Date Thrive assessed 07/01/24 07/04/24 11:55 Currently or been in a relationship where the following occur: No concerns reported Const General: alert Nutritional Appearance: average body habitus Orientation/consciousness: patient oriented x3 HENMT Ears: external ears normal General nose exam: Normal external nose present Face and sinus: Yes face symmetric Mouth: Normal oral and palatal mucosa present and moist mucous membranes Eyes General: appearance normal, both eyes and all related structures Neck Neck: Yes full ROM, Yes no lymphadenopathy and Yes supple Thyroid: Thyroid normal Resp Effort & Inspection: normal respiratory effort and able to speak in complete sentences Auscultation: clear to auscultation bilaterally Cardio Rate: regular rate Rhythm: regular rhythm Heart sounds: S1 normal heart sound present and S2 normal heart sound present GI Palpation (GI): Soft to palpation, nontender, no guarding and no masses Auscultation: normal bowel sounds Neuro General: patient oriented x3, gait normal, moves all extremities, Normal light touch and pain sensation, no focal motor deficits and CN's II-XI intact bilaterally Cognition (Neuro): normal cognition Gait exam (Neuro): Normal gait present Motor exam (neuro): 5/5 motor strength present throughout Extrem General: Yes normal to inspection, Yes full ROM, Yes no joint enlargement, Yes no pedal edema and Yes normal gait Psych Appearance: grossly normal and well kempt Mental Status: mental status grossly normal Speech and movement: Normal speech and movement present Affect: normal affect Attitude: cooperative Thought process: Normal thought process present Thought content: Normal thought content present Coding Level of Care Code Est Pt Level 4 (41121) Diagnoses Mixed anxiety and depressive disorder F41.8 Chronic fatigue R53.82 Fatigue type: chronic, unspecified Additional Codes PHQ-9 - 03618 - PHQ-9 Billing: Yes ([id number]) CL-7 Assessment Billing - CL-7 Assessment Tool: CL-7 Assessment 46846 ([id number]) Assessment & Plan Assessment & Plan (1) Mixed anxiety and depressive disorder: Code(s): F41.8 - Other specified anxiety disorders Category: Medical Plan: Will continue on escitalopram 20 mg daily, patient does not want to go higher on her dose at present. (2) Fatigue: Code(s): R53.83 - Other fatigue Category: Medical Qualifiers: Fatigue type: chronic, unspecified Qualified Code(s): R53.82 - Chronic fatigue, unspecified Plan: Will check CBC with differential, TSH with free T4, vitamin-D, vitamin B12 and folic acid, liver enzymes, lipid panel with results still pending Orders: Orders Basic Metabolic Panel Fasting 07/04/24 F41.8 - Other specified anxiety disorders, R53.83 - Other fatigue Complete Blood Count Auto Diff 07/04/24 F41.8 - Other specified anxiety disorders, R53.83 - Other fatigue Vitamin D 25-OH Total 07/04/24 F41.8 - Other specified anxiety disorders, R53.83 - Other fatigue Vitamin B12 and Folate 07/04/24 F41.8 - Other specified anxiety disorders, R 53.83 - Other fatigue Aspartate Amino Transferase 07/04/24 F41.8 - Other specified anxiety disorders, R53.83 - Other fatigue Alanine Aminotransferase 07/04/24 F41.8 - Other specified anxiety disorders, R53.83 - Other fatigue Lipid Panel 07/04/24 F41.8 - Other specified anxiety disorders, R53.83 - Other fatigue TSH reflex Free T4 07/04/24 F41.8 - Other specified anxiety disorders, R53.83 - Other fatigue
[2024-07-04 11:52] VITALS: BP 112/80; PULSE 82; RESP 16; TEMP 36.8; O2SAT 100; BMI 20.4
--- OUTSIDE RECORDS SUMMARY | 2024-07-04 14:03 | XMS_ITS | Clinical Summary ---
Author Organization [facility] ity Address [address] [place] [address] Care Team Providers Care Safety Investigator/Cause Analyst Name Role Phone Ariane Mccann MD Primary Care Provider Social History Tobacco Use Types Packs/Day Years Used Date Smoking Tobacco: Never Assessed Comments Unknown Sex and Gender Information Value Date Recorded Sex Assigned at Not on file Legal Sex Female 7:59 PM EST Gender Identity Not on file Sexual Orientation Not on file Plan of Treatment Health Maintenance Due Date Last Done Comments Breast Cancer Screening 1984 Hepatitis B Vaccines (1 of 3 - 19+ 3-dose series) 06/04/2003 Cervical Cancer Screening: P ap Smear 2005 COVID-19 Vaccine (2023-2 5 season) 2023 Depression Screening 01/13/2024 HIV Screening 01/13/2024 Hepatitis C Screening 01/13/2024 Social Influencers of Health Screening 01/13/2024 Influenza Vaccine (Season Ended) 2024 03/30/19 18 DTaP,Tdap,and Td Vaccines (2 - Td or Tdap) 07/20/2027 07/19/2017 HIB Vaccines Aged Out No longer eligi ble based on patient's age to complete this topic HPV Vaccines Aged Out No longer eligi ble based on patient's age to complete this topic Hepatitis A Vaccines Aged Out No long er eligible based on patient's age to complete this topic IPV Vaccines Aged Out No longer eligi ble based on patient's age to complete this topic MMR Vaccines Aged Out No longer eligi ble based on patient's age to complete this topic Meningococcal ACWY Vaccine Aged Out N o longer eligible based on patient's age to complete this topic Meningococcal B Vaccine Aged Out No l onger eligible based on patient's age to complete this topic Pneumococcal Vaccine: Pediat rics (0 to 5 Years) and At-Risk Patients (6 to 64 Years) Aged Out No longer eligi ble based on patient's age to complete this topic RSV Immunization Patients Un froylan 20 months Aged Out No longer eligible b ased on patient's age to complete this topic Varicella Vaccines Aged Out No longer eligible based on patient's age to complete this topic Care Teams Safety Investigator/Cause Analyst Relationship Specialty Start Date End Date Ariane Mccann MD [address] [place] [address] PCP - General Internal Medicine 02/06/17
== END 2024-07-04 12:26 | disposition home or self-care (01) ==
LOC: HO.HMCC 11:41
PROVIDERS: PCP Internal Medicine; Visit Provider Internal Medicine
DX: F41.8 Other specified anxiety disorders (principal); R53.82 Chronic fatigue, unspecified

== ENCOUNTER 2024-07-04 11:40 | Outpatient (REF) | payer OTHER, SELFPAY ==
[2024-07-04 13:05] LABS: MANUAL DIFF FLAG NO
[2024-07-04 13:17] LABS: Basophils Percent Auto 0.5 % (0-2); Eosinophils Absolute Auto 0.1 X10*3/uL (0.0-0.4); Eosinophils Percent Auto 0.8 % (0-4); Hematocrit 38.4 % (37.0-47.0); Hemoglobin 12.7 g/dl (12.0-16.0); Imm Gran Abs Auto 0.02 X10*3/uL (0.00-0.03); Imm Gran Pct Auto 0.3 % (0.0-0.4); Lymphocytes Absolute Auto 2.1 X10*3/uL (1.2-4.9); Mean Corpuscular HGB Conc 33.1 g/dl (31.0-35.0); Mean Corpuscular Hemoglobin 29.1 pg (27.0-33.0); Mean Corpuscular Volume 87.9 fL (80.0-98.0); Mean Platelet Volume 9.7 fL (9.4-12.3); Monocytes Absolute Auto 0.4 X10*3/uL (0.1-1.2); Neutrophils Absolute Auto 3.9 x10*3/uL (2.0-8.3); Neutrophils Percent Auto 59.4 % (45-73); Platelet Count 291 X10*3/uL (160-400); Red Blood Count 4.37 X10*6/uL (4.20-5.50); Red Cell Distribution Width 12.8 % (11.0-16.0); White Blood Count 6.5 X10*3/uL (4.8-10.8)
[2024-07-04 13:49] LABS: Alanine Aminotransferase 11 U/L (0-31); Anion Gap 15 (12-20); Aspartate Amino Transferase 20 U/L (5-31); Blood Urea Nitrogen 10 mg/dL (9-16); Calcium 9.3 mg/dL (8.4-10.2); Carbon Dioxide 21 mmol/L (22-29); Chloride 105 mmol/L (96-108); Cholesterol 163 mg/dL (<200); Estimated Glomerular Filt Rate > 60; Glucose Fasting 78 mg/dL (60-99); HDL Cholesterol 65 mg/dL (>40); LDL Cholesterol Calculated 82 mg/dL (<100); Potassium 3.8 mmol/L (3.3-5.1); Sodium 137 mmol/L (135-145); Triglycerides 82 mg/dL (<150)
[2024-07-04 14:04] LABS: TSH reflex Free T4 1.12 uIU/mL (0.32-4.0); Vitamin D 25-OH Total 44.2 ng/mL (>30)
[2024-07-04 14:13] LABS: Folate 13.4 ng/mL (> or = 4.0); Vitamin B12 587 pg/mL (200-900)
--- OUTSIDE RECORDS SUMMARY | 2024-07-04 14:35 | XMS_ITS | Clinical Summary ---
Author Organization [facility] ity Address [address] [place] [address] Care Team Providers Care Rn Circulating Name Role Phone Ariane Mccann MD Primary [...] age to complete this topic Care Teams Rn Circulating Relationship Specialty Start Date End Date Ariane Mccann MD [address] [place] [address] PCP - General Internal Medicine 02/06/17
== END 2024-07-04 11:41 | disposition home or self-care (01) ==
LOC: HO.HMGCLDS 11:40
PROVIDERS: PCP Internal Medicine; Visit Provider Internal Medicine
DX: F41.8 Other specified anxiety disorders (principal); R53.82 Chronic fatigue, unspecified; Z79.899 Other long term (current) drug therapy
CPT/HCPCS: 36415; 80048; 80061; 82306; 82607; 82746; 84443; 84450; 84460; 85025; 96127

== ENCOUNTER 2024-09-06 08:09 | Outpatient (AMB) | payer OTHER, SELFPAY ==
--- NOTE | 2024-09-06 08:10 | MHC.PC.OV ---
Intake Visit Reasons: Increase medication Allergies No Known Allergies Allergy (Verified 09/06/24 08:25) Medication List - Last Reconciled 09/06/24 by Ariane Mccann MD cholecalciferol (vitamin D3) 50 mcg PO DAILY escitalopram oxalate 30 mg PO DAILY Tobacco use date assessed: 07/04/24 Dental Screening Dental Screen Date: 07/04/24 HPI Increase medication HPI Details Ladi is here today for a telehealth visit for follow-up regarding anxiety disorder. She is currently on escitalopram but recently increased her dose to 30 mg once a day, which she finds to be very helpful in controlling anxiety attacks. She is still gets a clinic episodes of anxiety every now and but these are short-lived and easily managed. She does not want referral to see a therapist. [facility] Medical History Fatigue Mixed anxiety and depressive disorder Surgical History No pertinent past surgical history Family History Father Esophageal cancer COPD (chronic obstructive pulmonary disease) Diabetes mellitus CVA (cerebral vascular accident) Social History Housing: House Patient Tobacco Use Status: Never used Tobacco e-Cigarette/Vaping Use: Never Used service: No Current occupational status: unemployed Cognitive needs: No Hearing needs: No Vision needs: Yes Questionnaire PHQ-9 Over the last 2 weeks, how often have you been bothered by any of the following problems? 1. Little interest or pleasure in doing things: several days 2. Feeling down, depressed, or hopeless: not at all 3. Trouble falling or staying asleep, or sleeping too much: several days 4. Feeling tired or having little energy: several days 5. Poor appetite or overeating: several days 6. Feeling bad about yourself - or that you are a failure or have let yourself or your family down: several days 7. Trouble concentrating on things, such as reading the newspaper or watching television: not at all 8. Moving or speaking so slowly that other people could have noticed. Or the opposite - being so fidgety or restless that you have been moving around a lot more than usual: not at all 9. Thoughts that you would be better off or of hurting yourself in some way: not at all Total score: 5 Depression Screening Interpretation: Negative Depression Screening Done: Yes 78480 - PHQ-9 Billing: Yes Source: Developed by Drs. Amol Sandhu, Jennifer Uriarte, Alessandro Avendaño and colleagues, with an educational giuseppe from [employer]. Thrive Questionnaire Date Thrive assessed: 07/01/24 CL-7 AMB Questionnaire CL-7 Date CL - 7 assessed: 09/06/24 Feeling nervous, anxious, or on edge: 1 = Several days Not being able to stop or control worryin = Not at all Worrying too much about different things: 0 = Not at all Trouble relaxin = Several days Being so restless that it is hard to sit still: 0 = Not at all Becoming easily annoyed or irritable: 1 = Several days Feeling afraid as if something awful might happen: 0 = Not at all Total CL-7 score (0-4 normal; 5-9 mild; 10-14 moderate; 15-21 severe): 3 Source: Developed by Drs. Amol Sandhu, Jennifer Uriarte, Alessandro Avendaño and colleagues, with an educational giuseppe from [employer]. CL-7 Assessment Billing CL-7 Assessment Tool: CL-7 Assessment 50845 Review of Systems Const Denies body aches, Denies headache(s) and Denies weakness Eyes Denies change in vision ENT Denies dizziness, Denies headache(s) and Denies nasal congestion Card Denies chest pain, Denies lightheadedness, Denies palpitations and Denies dyspnea Resp Denies chest congestion, Denies cough, Denies dyspnea and Denies wheezing GI Denies abdominal pain, Denies change in bowel habits and Denies heartburn Denies hematuria, Denies urinary frequency, Denies dysuria and Denies urinary urgency Musc Reports no additional complaints Skin/Breast Denies breast pain, Denies breast mass and Denies rash Neuro Denies dizziness, Denies headache(s) and Denies weakness Psych Reports no additional complaints Endo Denies polydipsia, Denies polyuria and Denies palpitations Benson/Lymph Reports no additional complaints Aller/Immun Denies seasonal rhinorrhea and Denies wheezing Physical exam (Primary Care) Tobacco/Smoking Status: Tobacco use Status Tobacco use date assessed 07/04/24 09/06/24 08:14 Patient Tobacco Use Status Never used Tobacco 09/06/24 08:14 e-Cigarette/Vaping Use Never Used 09/06/24 08:14 PHQ-9: PHQ-9 Score PHQ-9: Total score 5 09/06/24 08:26 Depression Screening Interpretation: Negative Thrive Assessment: Date of Thrive Assessment Date Thrive assessed 07/01/24 09/06/24 08:14 Telehealth Telehealth Telehealth Platform: [employer] Location of provider rendering services: practice address Location of patient: address on file Patient Identification confirmed using: Name, : Yes Telehealth method: video Patient verbally consented to treatment: Yes Patient verbally consented to billing insurance company: Yes Patient informed of any privacy concerns related to visit: Yes Minutes spent on Phone/Video with Pt.: 18 Coding Level of Care Code Tele Est Pt Level 3 (49177) Diagnoses Mixed anxiety and depressive disorder F41.8 Additional Codes CL-7 Assessment Billing - CL-7 Assessment Tool: CL-7 Assessment 58120 ([id number]) PHQ-9 - 73001 - PHQ-9 Billing: Yes ([id number]) Assessment & Plan Assessment & Plan (1) Mixed anxiety and depressive disorder: Code(s): F41.8 - Other specified anxiety disorders Category: Medical Plan: Patient states that she is doing better, with anxiety better controlled and mood stable with higher dose of escitalopram at 30 mg daily. Would like to continue on this dose, refill sent. Referral to therapist declined by patient Medications: Changed From escitalopram oxalate 30 mg PO DAILY F41.8 - Other specified anxiety disorders To escitalopram oxalate 30 mg (1.5 x 20 mg) PO DAILY 135 tabs 2RF 3 months F41.8 - Other specified anxiety disorders
--- OUTSIDE RECORDS SUMMARY | 2024-09-06 08:13 | XMS_ITS ---
Author Name [facility] Organization Unknown History of Medication Use Medication Directions Dispensed Refills Start Date End Date Stat us acetaminophen (TYLENOL) 325 mg cap Take 1-2 capsules by mouth 4 (four) times a day for 7 days Max 12 capsules in 24 hours. 08/06/2024 active escitalopram oxalate (LEXAPRO) 20 MG tablet 08/06/2024 ac tive Problems Problem Status Onset Date Problem Type Date of Resolution Source Acute pharyngitis, unspecified etiology active Encounter[facility]osisAct [facility] Encounters Encounter Type Encounter Reason Primary Diagnosis Location Date Ambulatory Mouth or throat complaint Acute pharyngitis, unspecified [facility] 08/06/2024 Care Team Organization Name Specialty Phone Email Start Date End Da te [facility] NO PCP Primary Care 08/06
== END 2024-09-06 08:34 | disposition home or self-care (01) ==
LOC: HO.HMCC 08:09
PROVIDERS: PCP Internal Medicine; Visit Provider Internal Medicine
DX: F41.8 Other specified anxiety disorders (principal)

== ENCOUNTER → 2024-09-06 08:09 | Outpatient (BNVA) | payer OTHER, SELFPAY | PROVIDERS: PCP Internal Medicine; Visit Provider Internal Medicine | DX: F41.8 Other specified anxiety disorders (principal) | CPT/HCPCS: 96127 ==

== ENCOUNTER 2024-09-10 09:30 | Outpatient (REF) | payer OTHER, SELFPAY ==
--- NOTE | ~2024-09-10 | XR_ITS ---
EXAMINATION: XR FINGER, RIGHT CLINICAL INFORMATION: M79.644 - Pain in right finger(s) , right thumb pain TECHNIQUE: PA hand and oblique and lateral views of the right thumb COMPARISON: None available. FINDINGS: No acute fracture. No degenerative changes. No soft tissue swelling. IMPRESSION Unremarkable right thumb Electronically signed by: Shiva Andino MD 09/10/2024 10:16 AM EDT
== END 2024-09-10 09:31 | disposition home or self-care (01) ==
LOC: HO.HMGCX 09:30
PROVIDERS: PCP Internal Medicine; Visit Provider Physician Assistant Medical
DX: M79.644 Pain in right finger(s) (principal)
CPT/HCPCS: 73140

== ENCOUNTER 2024-09-10 09:30 | Outpatient (AMB) | payer OTHER, SELFPAY ==
[2024-09-10 09:36] VITALS: BP 110/62; PULSE 93; TEMP 37.1; O2SAT 99; BMI 19.9
--- NOTE | 2024-09-10 09:36 | AM.OFFWIN_ITS ---
Intake Vital Signs 09/10/24 09:36 Height 5 ft 9 in Weight 135 lb BMI 19.9 BP 110/62 Blood Pressure Location Rt brachial Position Sitting Pulse 93 Pulse Source Pulse Oximeter Temp 98.7 F Temp Source Oral Pulse Oximetry (%) 99 Intake Visit Reasons: EP Rt thumb pain Intake Note: pt presents with right thumb pain x2 weeks, denies injury Patient Tobacco Use Status: Never used Tobacco Allergies No Known Allergies Allergy (Verified 09/10/24 09:38) Do you need a note to return to daycare/school/sports/work: No HPI HPI Comments History of Present Illness Details History of Present Illness - The patient is a 39-year-old female pr esenting with right thumb pain. - The pain has been present for a couple of weeks and is localized to the thumb joint. - The patient reports difficulty in open ing and holding objects due to the pain. - There is no history of trauma or speci fic inciting event. - The patient is right-handed and does n ot engage in activities involving repetitive thumb movements. - No numbness is reported, and the patie nt can make a fist, although it is painful. - She has no other joint pain. - She denies numbness, tingling, elbow p ain, arm pain, or shoulder pain. - She has not taken anything for the alfonso n. Physical Exam General: Cooperative, healthy appearing, comfortable, no acute distress and well developed Respiratory: Normal respiratory effort and able to speak in complete sentences. Clear to auscultation bilaterally Cardiovascular: Regular rate and rhythm. Normal S1 and S2 Skin: No rashes or lesions noted. No swelling to the right hand or thumb Neuro: Sensation intact Extremities: FROM of the right thumb. Adduction and opposition is intact. TTP of the right MCP of the thumb. No snuffbox tenderness noted. Negative Finklesteins test. FROM of the right wrist. Hand belting and webbing inspector is intact. Patient was informed and verbally consented to the use of an ambient scribe for clinic note documentation during this visit. [facility] Medical History Fatigue Mixed anxiety and depressive disorder Surgical History No pertinent past surgical history Family History Father Esophageal cancer COPD (chronic obstructive pulmonary disease) Diabetes mellitus CVA (cerebral vascular accident) Social History Housing: House Patient Tobacco Use Status: Never used Tobacco e-Cigarette/Vaping Use: Never Used service: No Current occupational status: unemployed Cognitive needs: No Hearing needs: No Vision needs: Yes Review of Systems Const All systems reviewed & are unremarkable except as noted in HPI and below Physical Exam Vital Signs: Last Vital Signs Temp 98.7 F 09/10/24 09:36 Pulse 93 09/10/24 09:36 BP 110/62 09/10/24 09:36 Pulse Ox 99 09/10/24 09:36 BMI result Body Mass Index 19.9 Results Reviewed Results Reviewed: reviewed her x-ray in the office Assessment & Plan Assessment & Plan (1) Pain of right thumb: Code(s): M79.644 - Pain in right finger(s) Plan Most likely arthritis vs tendonitis vs tenosynovitis Plan - will order an x-ray - rest, ice and elevation - wear splint for comfort - can refer her to hand ortho - use tylenol or motrin as needed - follow up with PCP Orders: Orders XR finger RT min 2V Today M79.644 - Pain in right finger(s) Coding Level of Care Code Est Pt Level 4 (15831) Diagnoses Pain of right thumb M79.644
--- OUTSIDE RECORDS SUMMARY | 2024-09-10 10:11 | XMS_ITS | Clinical Summary ---
Author Organization [facility] ity Address [address] [place] [address] Care Team Providers Care College Scouting Coordinator Name Role Phone Ariane Mccann MD Primary [...] Influencers of Health Screening 01/13/2024 Influenza Vaccine (#1) 2024 03/30/2017 DTaP,Tdap,and Td Vaccines (2 - Td or [...] age to complete this topic Care Teams College Scouting Coordinator Relationship Specialty Start Date End Date Ariane Mccann MD [address] [place] [address] PCP - General Internal Medicine 02/06/17
--- OUTSIDE RECORDS SUMMARY | 2024-09-10 10:11 | XMS_ITS ---
Author Name [facility] Organization Unknown History of Medication Use Medication [...]
== END 2024-09-10 10:46 | disposition home or self-care (01) ==
PROVIDERS: PCP Internal Medicine; Visit Provider Physician Assistant Medical
DX: M79.644 Pain in right finger(s) (principal)

== ENCOUNTER → 2024-09-10 10:02 | Outpatient (BNV) | payer OTHER, SELFPAY | PROVIDERS: PCP Internal Medicine; Visit Provider Radiology Diagnostic Radiology | DX: M79.644 Pain in right finger(s) (principal) | CPT/HCPCS: 73140 ==

== ENCOUNTER 2025-03-10 08:47 | Outpatient (AMB) | payer OTHER, SELFPAY ==
--- OUTSIDE RECORDS SUMMARY | 2025-03-10 08:53 | XMS_ITS | Clinical Summary ---
Author Organization [facility] ity Address [address] [place] [address] Care Team Providers Care Nanny/Household Manager Name Role Phone Ariane Mccann MD Primary [...] Cervical Cancer Screening: P ap Smear 2005 HPV Vaccines (1 - 3-dose SCD M series) 06/04/2011 HIV Screening 01/13/2024 Hepatitis C Screening 01/13/2024 Social Influencers of Health Screening 01/13/2024 Depression Screening 03/13/2024 COVID-19 Vaccine ( - 2024-2 6 season) 2024 Influenza Vaccine (#1) 2024 03/30/2017 DTaP,Tdap,and Td Vaccines (2 - Td or Tdap) 07/20/2027 07/19/2017 RSV Immunization Adult Patie nts (1 - 1-dose 75+ series) 06/04/2059 HIB Vaccines Aged Out No longer eligi [...] 5 Years) and At-Risk Patients (6 to 49 Years) Aged Out No longer eligi ble based on patient's age to complete this topic RSV Immunization Patients Un froylan 20 months Aged Out No longer eligible b ased on patient's age to complete this topic Varicella Vaccines Aged Out No longer eligible based on patient's age to complete this topic Care Teams Nanny/Household Manager Relationship Specialty Start Date End Date Ariane Mccann MD [address] [place] [address] PCP - General Internal Medicine 02/06/17
[2025-03-10 09:12] VITALS: BP 122/80; PULSE 102; O2SAT 97; BMI 21.0
--- NOTE | 2025-03-10 09:12 | A.OFFPC_ITS ---
Vital Signs 03/10/25 09:12 Height 5 ft 9 in Weight 142 lb BMI 21.0 BP 122/80 Blood Pressure Location Lt brachial Position Sitting Pulse 102 H Pulse Source Pulse Oximeter Pulse Oximetry (%) 97 Oxygen Delivery Method Room Air Intake Visit Reasons: PE Allergies No Known Allergies Allergy (Verified 03/10/25 09:52) Medication List - Last Reconciled 03/10/25 by Ariane Mccann MD cholecalciferol (vitamin D3) 50 mcg PO DAILY escitalopram oxalate 20 mg PO DAILY 3 months escitalopram oxalate 10 mg PO DAILY 3 months Tobacco use date assessed: 07/04/24 Dental Screening Dental Screen Date: 07/04/24 HPI HPI Comments History of Present Illness Details The patient is a 39-year-old female presenting today for her physical exam and for follow-up of anxiety and depression. She reports persistent symptoms of feeling in a foggy funk, being tired, and having no energy or motivation, which she attributes to depression. Her current medication, Lexapro 30 mg, which initially has been helping has not been has not been effective anymore, and her therapist recommended discussing other treatment options.. She has a history of anxiety issues that predates her marriage but states they have never been this severe. Associated symptoms include a lack of interest in preparing food, though she denies a loss of appetite. Despite this, she has experienced weight gain, which she finds depressing, and attributes this to a sweet tooth and stress-related binge eating. She identifies caring for her two children, aged three and seven, as her primary source of stress. She has started marriage counseling with her . At age 39, the patient also questions whether she is experiencing hormonal changes or perimenopause. She reports that her periods have become irregular, she has increased hair loss. Her father had a history of anxiety and depression. [facility] Medical History Fatigue Mixed anxiety and depressive disorder Surgical History No pertinent past surgical history Family History Father Esophageal cancer COPD (chronic obstructive pulmonary disease) Diabetes mellitus CVA (cerebral vascular accident) Social History (Updated 03/15/25 @ 17:58 by Ariane Mccann MD) Housing: House Patient Tobacco Use Status: Never used Tobacco e-Cigarette/Vaping Use: Never Used service: No Current occupational status: previously employed Current occupation: Housewife Cognitive needs: No Hearing needs: No Vision needs: Yes Questionnaire PHQ-9 Over the last 2 weeks, how often have you been bothered by any of the following problems? 1. Little interest or pleasure in doing things: more than half the days 2. Feeling down, depressed, or hopeless: more than half the days 3. Trouble falling or staying asleep, or sleeping too much: more than half the days 4. Feeling tired or having little energy: nearly every day 5. Poor appetite or overeating: not at all 6. Feeling bad about yourself - or that you are a failure or have let yourself or your family down: several days 7. Trouble concentrating on things, such as reading the newspaper or watching television: several days 8. Moving or speaking so slowly that other people could have noticed. Or the opposite - being so fidgety or restless that you have been moving around a lot more than usual: not at all 9. Thoughts that you would be better off or of hurting yourself in some way: not at all Total score: 11 Depression Screening Interpretation: Positive (On Lexapro , which has not been helping, referred to Psychiatry) Depression Screening Follow-up: Existing condition, In treatment and Community Mental Health Worker F/U Depression Screening Done: Yes 71322 - PHQ-9 Billing: Yes Source: Developed by Drs. Amol Sandhu, Jennifer Uriarte, Alessandro Avendaño and colleagues, with an educational giuseppe from [employer]. Thrive Questionnaire Date Thrive assessed: 07/01/24 I am a: Patient What is your living situation today?: I have a steady place to live Within the past 12 months, did the food you bought not last and you didn't have the money to get more?: Never true Within the past 12 months, did you worry whether your food would run out before you got money to buy more?: Never true Do you have trouble paying for medicines?: No Do you have trouble getting transportation to medical appointments?: No Do you have trouble paying your heating and electricity bill?: No Do you have trouble taking care of your child, family member or friend?: No Do you have trouble with day-to-day activities such as bathing, preparing meals, shopping, managing finances, etc.?: No Are you currently unemployed and looking for a job?: No Are you interested in more education?: No Currently or been in a relationship where the following occur: No concerns reported THRIVE Score: 0 AUDIT C Alcohol Use Questionnaire (AUDIT-C) 1. How often do you have a drink containing alcohol?: Monthly or less 2. How many drinks containing alcohol do you have on a typical day when you are drinking?: 1 or 2 3. How often do you have six or more drinks on one occasion?: Never Total Score: 1 CL-7 AMB Questionnaire CL-7 Date CL - 7 assessed: 03/10/25 Feeling nervous, anxious, or on edge: 2 = More than half the days Not being able to stop or control worryin = More than half the days Worrying too much about different things: 2 = More than half the days Trouble relaxin = Several days Being so restless that it is hard to sit still: 1 = Several days Becoming easily annoyed or irritable: 1 = Several days Feeling afraid as if something awful might happen: 2 = More than half the days Total CL-7 score (0-4 normal; 5-9 mild; 10-14 moderate; 15-21 severe): 11 Source: Developed by Drs. Amol Sandhu, Jennifer Uriarte, Alessandro Avendaño and colleagues, with an educational giuseppe from [employer]. CL-7 Assessment Billing CL-7 Assessment Tool: CL-7 Assessment 59723 Review of Systems Narrative Review of Systems. Constitution As per HPI Reports no additional complaints Eyes no change in vision ENT Reports no additional complaints, Denies dysphagia and Denies odynophagia Cardiology Reports no additional complaints Respiratory Reports no additional complaints GI Denies abdominal pain, Denies belching, Denies melena, Denies bloating, Denies change in bowel habits, Denies dysphagia, Denies excessive flatus, Denies dyspepsia, Denies heartburn, Denies diarrhea, Denies loose stools, Denies nausea, Denies odynophagia and Denies vomiting As per HPI Muscular no additional complaints Skin/Breast Denies breast swelling, Denies breast pain, Denies breast mass and Denies rash Neurology Reports no additional complaints, Denies Abnormal speech present and Denies Sen humberto deficit (Neuro) Psychiatry As per HPI Endocrine Reports no additional complaints Benson/Lymph Reports no additional complaints Aller/Immun Reports no additional complaints Physical exam (Primary Care) Vital Signs: Last Vital Signs Pulse 102 H 03/10/25 09:12 BP 122/80 03/10/25 09:12 Pulse Ox 97 03/10/25 09:12 Oxygen Delivery Method Room Air 03/10/25 09:12 BMI result Body Mass Index 21.0 Tobacco/Smoking Status: Tobacco use Status Tobacco use date assessed 07/04/24 03/10/25 09:14 Patient Tobacco Use Status Never used Tobacco 03/10/25 09:14 e-Cigarette/Vaping Use Never Used 03/10/25 09:14 Depression Screening Interpretation: Positive (On Lexapro , which has not been helping, referred to Psychiatry) Depression Screening Follow-up: Existing condition, In treatment and Community Mental Health Worker F/U Thrive Assessment: Date of Thrive Assessment Date Thrive assessed 07/01/24 03/10/25 09:14 Currently or been in a relationship where the following occur: No concerns reported Const General: alert Nutritional Appearance: average body habitus Orientation/consciousness: patient oriented x3 HENMT Ears: external ears normal General nose exam: Normal external nose present Face and sinus: Yes face symmetric Mouth: Normal oral and palatal mucosa present and moist mucous membranes Eyes General: appearance normal, both eyes and all related structures Neck Neck: Yes full ROM, Yes no lymphadenopathy and Yes supple Thyroid: Thyroid normal Chest Chest palpation & inspection: normal inspection of the chest Breast/axilla palpation: normal palpation of the breasts Resp Effort & Inspection: normal respiratory effort and able to speak in complete sentences Auscultation: clear to auscultation bilaterally Cardio Rate: regular rate Rhythm: regular rhythm Heart sounds: S1 normal heart sound present and S2 normal heart sound present GI Palpation (GI): Soft to palpation, nontender, no guarding and no masses Auscultation: normal bowel sounds General: Yes no CVA tenderness and Yes deferred (Goes to [facility], last Pap smear was normal in 2021) Back/Spine/Pelvis Back: no CVA tenderness and No back tenderness Skin General skin exam: no rashes or lesions noted Hair: normal Neuro General: patient oriented x3, gait normal, moves all extremities, Normal light touch and pain sensation, no focal motor deficits and CN's II-XI intact bilaterally Cognition (Neuro): normal cognition Gait exam (Neuro): Normal gait present Motor exam (neuro): 5/5 motor strength present throughout Extrem General: Yes normal to inspection, Yes full ROM, Yes no joint enlargement, Yes no pedal edema and Yes normal gait Psych Appearance: grossly normal and well kempt Mental Status: mental status grossly normal Speech and movement: Normal speech and movement present Affect: normal affect Attitude: cooperative Thought process: Normal thought process present Thought content: Normal thought content present Results Reviewed Results Reviewed: Name: Ladi Barba Age/Sex: 39/F : 1985 Unit#: [id number] Attend Dr: Arinae Mccann MD Re07/04/24 Status: DEP REF Location: [facility] Disch: SPEC : [id number] TANIA: 07/04/24 STATUS: COMP REQ : [id number] RECD: 07/04/[address]: Ariane Mccann MD COMP: 07/04/24 ENTERED: 07/04/[address]: ORDERED: CBC Auto Diff Test Result Flag Reference WBC 6.5 4.8-10.8 X10*3/uL RBC 4.37 4.20-5.50 X10*6/uL HGB 12.7 12.0-16.0 g/dl HCT 38.4 37.0-47.0 % MCV 87.9 80.0-98.0 fL MCH 29.1 27.0-33.0 pg MCHC 33.1 31.0-35.0 g/dl RDW 12.8 11.0-16.0 % PLT 291 160-400 X10*3/uL MPV 9.7 9.4-12.3 fL Neut Pct Auto 59.4 45-73 % ImGran Pct Auto 0.3 0.0-0.4 % Lymp Pct Auto 33.0 20-40 % [place] Pct Auto 6.0 2-11 % Eos Pct Auto 0.8 0-4 % Baso Pct Auto 0.5 0-2 % NRBC Pct Auto 0.0 0.0-0.2 /100WBC ANC Neut Abs # 3.9 2.0-8.3 x10*3/uL ImGran Abs Auto 0.02 0.00-0.03 X10*3/uL Lymph Abs Auto 2.1 1.2-4.9 X10*3/uL [place] Abs Auto 0.4 0.1-1.2 X10*3/uL Eos Abs Auto 0.1 0.0-0.4 X10*3/uL Baso Abs Auto 0.0 0.0-0.2 X10*3/uL NRBC Abs Auto 0.000 0.0-0.012 X10*3/uL Name: Ladi Barba Age/Sex: 39/F : 1985 Unit#: [id number] Attend Dr: Ariane Mccann MD Re07/04/24 Status: DEP REF Location: [facility] Disch: SPEC : [id number] TANIA: 07/04/24-1225 STATUS: COMP REQ : [id number] RECD: 07/04/24-[address]: Ariane Mccann MD COMP: 07/04/24-1404 ENTERED: 07/04/24-[address] [facility] [address]: ORDERED: Met Prof Fast, AST, ALT, Lipid Panel, Vitamin D 25-OH, TSH Rflx Test Result Flag Reference Sodium 137 135-145 mmol/L Potassium 3.8 3.3-5.1 mmol/L CL 105 96-108 mmol/L CO2 21 L 22-29 mmol/L Gap 15 12-20 BUN 10 9-16 mg/dL Creat 0.65 0.5-1.4 mg/dL eGFR > 60 Chronic Kidney Disease: Estimated GFR < 60 mL/min/1.73m2 Severe Kidney Disease: Estimated GFR < 15 mL/min/1.73m2 FBS 78 60-99 mg/dL CA 9.3 8.4-10.2 mg/dL AST (GOT) 20 5-31 U/L ALT (GPT) 11 0-31 U/L Triglyceride 82 <150 mg/dL Desirable Triglyceride: less than 150 mg/dL Borderline High Triglyceride 150-199 mg/dL High Triglyceride: 200-499 mg/dL Very High Triglyceride: greater than or equal to 5OO mg/dL Cholesterol 163 <200 mg/dL Desirable Cholesterol: less than 200 mg/dL Borderline High Cholesterol: 200-239 mg/dL High Cholesterol: greater than 239 mg/dL LDL Calculated 82 <100 mg/dL Desirable LDL: less than 100 mg/dL Near Optimal/Above Optimal LDL: 110-129 mg/dL Borderline High LDL: 130-159 mg/dL High LDL: 160-189 mg/dL Very High LDL: greater than or equal to 190 mg/dL HDL 65 >40 mg/dL Desirable HDL: greater than 40 mg/dL Note: This HDL assay may give artificially low results in patients with liver disease. Vitamin D 25-OH 44.2 >30 ng/mL Health Based Reference Values* < 20 ng/mL Deficient 20-30 ng/mL Insufficient > 30 ng/mL Sufficient *Geneva BROWNING. N Engl J Med. 2007;357:266-280 There is no well-established upper level of normal vitamin D levels. Some laboratories use 50 ng/mL as an upper limit of normal. However, toxicity is patient-dependent and may occur at any level. Careful correlation with the patient's presentation is necessary and, if there is concern for vitamin D toxicity, treatment should be considered irrespective of the serum level. Care must be taken in interpreting Vitamin D results from different laboratories and methodologies. Published data demonstrated that results from patients undergoing hemodialysis may show a negative bias when tested with various automated 25-OH vitamin D assays when compared to LC-MS/MS. When testing samples from patients whose predominant form of Vitamin D is Vitamin D2, such as patients receiving Vitamin D2 supplementation, results that are subtherapeutic should be confirmed with another method such as LC-MS/MS. TSH 1.12 0.32-4.0 uIU/mL Coding Level of Care Code Est Pt Prev Care 40-64y(10137) Diagnoses Annual visit for general adult medical examination with abnormal findings Z00.01 Mixed anxiety and depressive disorder F41.8 Irregular menstrual cycle N92.6 Additional Codes PHQ-9 - 65314 - PHQ-9 Billing: Yes ([id number]) CL-7 Assessment Billing - CL-7 Assessment Tool: CL-7 Assessment 13215 ([id number]) Assessment & Plan Assessment & Plan (1) Annual visit for general adult medical examination with abnormal findings: Code(s): Z00.01 - Encounter for general adult medical examination with abnormal findings Plan: Had recent fasting labs done in June this year, which showed normal CBC, electrolytes, fasting glucose, renal function, vitamin-D level, and lipids as well as normal TSH level. Recommended dental visit every 6 months and regular eye exams, at least every 2 years. Take adequate calcium in diet and vitamin-D 3 at 2000 IU per cap once a day, in addition to weight-bearing exercises to help maintain good muscle tone and weight control. Instructed to do self-breast exam, and recommended to get yearly mammogram, starting now at age 40. Mammogram screening ordered. Goes to [facility] for routine Pap and pelvic exam, with last 1 done in 2021 showing normal findings. She is up-to-date with her flu vaccine tetanus diphtheria and whooping cough vaccination but does not want get a COVID booster (2) Mixed anxiety and depressive disorder: Code(s): F41.8 - Other specified anxiety disorders Category: Medical Plan: The patient presents with persistent depressive symptoms, including fatigue, anhedonia, and amotivation, as well as anxiety, despite treatment with Lexapro 30 mg. Symptoms are impacting her quality of life and may be exacerbated by stress and possible perimenopausal changes. Given the lack of response, a change in medication is warranted. Discontinue Lexapro via a slow taper over four weeks. The taper will be as follows: 20 mg daily for 1st week; alternate 20 mg and 10 mg daily for 2nd week; 10 mg dailyon 3rd week; then 5 mg daily on 4th week, before stopping. Initiate fluoxetine (Prozac) 10 mg, an SSRI, and titrate the dose upwards as Lexapro is weaned. Bupropion was considered but not chosen due to its appetite-suppressing side effects. Placed a referral for psychology/behavioral health with Genoveva Olsen NP for further evaluation management, continue with regular therapy sessions.. The patient will follow up by sending a message in two weeks to report her status. (3) Irregular menstrual cycle: Code(s): N92.6 - Irregular menstruation, unspecified Plan: The patient is 39 years old and reports symptoms suggestive of perimenopause, including irregular menses, hair loss, and mood swings These hormonal fluctuations may be contributing to her mood swings. Monitor symptoms., advised to discuss her symptoms with her manifold builder The trial of fluoxetine may help differentiate depressive symptoms from hormone- related mood changes. Plan Patient was informed and verbally consented to the use of an ambient scribe for clinic note documentation during this visit. Orders: Orders MM tomosynthesis screening BI Today Z12.31 - Encounter for screening mammogram for malignant neoplasm of breast Referrals Psychiatry Referral F41.8 - Other specified anxiety disorders Medications: New fluoxetine 10 mg PO DAILY 30 tabs 1RF Discontinued escitalopram oxalate Discontinued Reason: Doctor's Order 20 mg PO DAILY 3 months 90 tabs 1RF F41.8 - Other specified anxiety disorders
== END 2025-03-10 10:20 | disposition home or self-care (01) ==
LOC: HO.HMCC 08:48
PROVIDERS: PCP Internal Medicine; Visit Provider Internal Medicine
DX: Z00.01 Encounter for general adult medical examination with abnormal findings (principal); F41.8 Other specified anxiety disorders; N92.6 Irregular menstruation, unspecified

== ENCOUNTER → 2025-03-10 08:47 | Outpatient (BNVA) | payer OTHER, SELFPAY | PROVIDERS: PCP Internal Medicine; Visit Provider Internal Medicine | DX: Z00.01 Encounter for general adult medical examination with abnormal findings (principal); F41.8 Other specified anxiety disorders; N92.6 Irregular menstruation, unspecified | CPT/HCPCS: 96127 ==